=== PATIENT | female | born 1985 | race American Indian/Alaskan Native ===

== ENCOUNTER 2016-12-23 02:08 | Emergency (ER) | payer MEDICAID, OTHER ==
[2016-12-23 03:23] VITALS: BP 100/62
--- NOTE | 2016-12-23 05:11 | Emergency Department Report ---
ED ENT HPI - General Chief complaint: Dental/Oral Stated complaint: TOOTHACHE,EAR PAIN Time Seen by Provider: 12/23/16 04:56 Source: patient Mode of arrival: Ambulatory Limitations: No Limitations - History of Present Illness MD complaint: tooth pain -: During the night Severity: severe Severity scale (0 -10): 9 Quality: aching Consistency: constant Improves with: none Worsens with: none - Related Data Previous Rx's Medication Instructions Recorded Last Taken Type HYDROcodone/APAP 5-325 [[place] 1 each PO Q6HR PRN #10 tablet 12/23/16 Unknown Rx 5/325] Penicillin Vk [Veetids TAB] 250 mg PO QID #28 tablet 12/23/16 Unknown Rx Allergies Allergy/AdvReac Type Severity Reaction Status Date / Time No Known Allergies Allergy Unverified 12/23/16 03:23 ED Dental HPI - General Chief complaint: Dental/Oral Stated complaint: TOOTHACHE,EAR PAIN Time Seen by Provider: 12/23/16 04:56 Source: patient Mode of arrival: Ambulatory Limitations: No Limitations - Related Data Previous Rx's Medication Instructions Recorded Last Taken Type HYDROcodone/APAP 5-325 [[place] 1 each PO Q6HR PRN #10 tablet 12/23/16 Unknown Rx 5/325] Penicillin Vk [Veetids TAB] 250 mg PO QID #28 tablet 12/23/16 Unknown Rx Allergies Allergy/AdvReac Type Severity Reaction Status Date / Time No Known Allergies Allergy Unverified 12/23/16 03:23 ED Review of Systems ROS: Stated complaint: TOOTHACHE,EAR PAIN Other details as noted in HPI Constitutional: denies: chills, fever Eyes: denies: eye pain, eye discharge, vision change ENT: dental pain. denies: ear pain, throat pain Respiratory: denies: cough, shortness of breath, wheezing Cardiovascular: denies: chest pain, palpitations Endocrine: no symptoms reported Gastrointestinal: denies: abdominal pain, nausea, diarrhea Genitourinary: denies: urgency, dysuria, discharge Musculoskeletal: denies: back pain, joint swelling, arthralgia Skin: denies: rash, lesions Neurological: denies: headache, weakness, paresthesias Psychiatric: denies: anxiety, depression Hematological/Lymphatic: denies: easy bleeding, easy bruising ED Past Medical Hx - Past Medical History Previous Medical History?: Yes Hx Asthma: Yes - Surgical History Past Surgical History?: No - Social History Smoking Status: Current Some Day Smoker Substance Use Type: Alcohol - Medications Home Medications: Home Medications Medication Instructions Recorded Confirmed Last Taken Type HYDROcodone/APAP 5-325 [[place] 1 each PO Q6HR PRN #10 tablet 12/23/16 Unknown Rx 5/325] Penicillin Vk [Veetids TAB] 250 mg PO QID #28 tablet 12/23/16 Unknown Rx ED Physical Exam - General Limitations: No Limitations General appearance: alert, in no apparent distress - Head Head exam: Present: atraumatic, normocephalic - Eye Eye exam: Present: normal appearance - ENT ENT exam: Present: mucous membranes moist - Expanded ENT Exam Expanded Ear exam: Present: normal external inspection Teeth exam: Present: dental caries, other (wisdom tooth erruption) - Neck Neck exam: Present: normal inspection - Respiratory Respiratory exam: Present: normal lung sounds bilaterally. Absent: respiratory distress - Cardiovascular Cardiovascular Exam: Present: regular rate, normal rhythm. Absent: systolic murmur, diastolic murmur, rubs, gallop - GI/Abdominal GI/Abdominal exam: Present: soft, normal bowel sounds - Extremities Exam Extremities exam: Present: normal inspection - Back Exam Back exam: Present: normal inspection - Neurological Exam Neurological exam: Present: alert, oriented X3 - Psychiatric Psychiatric exam: Present: normal affect, normal mood - Skin Skin exam: Present: warm, dry, intact, normal color. Absent: rash ED Course Vital Signs 12/23/16 03:20 Temperature 98.9 F Pulse Rate 69 Respiratory 20 Rate Blood Pressure 100/62 O2 Sat by Pulse 97 Oximetry ED Medical Decision Making - Medical Decision Making toothache #32 and wisdom tooth eruption Critical care attestation.: If time is entered above; I have spent that time in minutes in the direct care of this critically ill patient, excluding procedure time. ED Disposition Clinical Impression: Toothache Disposition: DISCHARGED TO HOME OR SELFCARE Is pt being admited?: No Does the pt Need Aspirin: No Condition: Stable Instructions: Toothache (ED), Dental Caries (ED) Prescriptions: HYDROcodone/APAP 5-325 [[place] 5/325] 1 each PO Q6HR PRN #10 tablet PRN Reason: Pain Penicillin Vk [Veetids TAB] 250 mg PO QID #28 tablet Forms: Work/School Release Form(ED) Time of Disposition: 05:13
[2016-12-23] MEDS ORDERED: NORCO 10/325 PO ONE (05:13)
== END 2016-12-23 05:16 | disposition home or self-care (01) ==
LOC: ED 02:08
DX: K08.89 Other specified disorders of teeth and supporting structures (principal); J45.909 Unspecified asthma, uncomplicated; F17.200 Nicotine dependence, unspecified, uncomplicated
CPT/HCPCS: 99282

== ENCOUNTER 2019-05-18 19:53 | Emergency (ER) | payer MEDICAID ==
[2019-05-18 19:59] VITALS: BP 118/86
[2019-05-18] MEDS ORDERED: DELTASONE PO ONE (19:59)
[2019-05-18] MEDS ORDERED: DUONEB *Not for PRN Use IH ONE (19:59)
--- NOTE | 2019-05-18 19:59 | Emergency Department Report ---
Blank Doc - Documentation Documentation: This is a 33-year-old female that presents with wheezing and SOB with cough. This initial assessment/diagnostic orders/clinical plan/treatment(s) is/are subject to change based on patient's health status, clinical progression and re- assessment by fellow clinical providers in the ED. Further treatment and workup at subsequent clinical providers discretion. Patient/guardians urged not to elope from the ED as their condition may be serious if not clinically assessed and managed. Initial orders include: 1- Patient sent to [facility] for further evaluation and treatment 2- breathing treatment/steroids 3- CXR
--- NOTE | 2019-05-18 21:14 | XRay Report ---
PROCEDURE: XR CHEST ROUTINE 2V TECHNIQUE: PA and lateral chest radiographs were obtained. HISTORY: wheezing/SOB/cough COMPARISONS: None. FINDINGS: Heart: Normal. Mediastinum/Vessels: Normal. Lungs/Pleural space: Normal. Bony thorax: No acute osseous abnormality. IMPRESSION: No acute cardiopulmonary process seen.. This document is electronically signed by Nadeen Colmenares MD., May 18 2019 09:12:06 PM ET
--- NOTE | 2019-05-19 00:13 | Emergency Department Report ---
ED Shortness of Breath HPI - General Chief Complaint: Dyspnea/Respdistress Stated Complaint: SOB Time Seen by Provider: 05/18/19 19:57 Source: patient Mode of arrival: Ambulatory Limitations: No Limitations - History of Present Illness Initial Comments: This is a 33-year-old -[place] female who presents to the emergency room with shortness of breath and a cough for several weeks. Past medical history of asthma. Patient states she hasn't had issues with asthma in several years. She hadn't tried anything [id number] for symptomatic relief. She denies fever, chills, or pain. MD Complaint: shortness of breath, cough Onset/Timin -: days(s) Severity: mild Pain Scale: 0 Improves With: nothing Worsens With: exertion, coughing Known History Of: asthma Context: recent URI Associated Symptoms: cough Treatments Prior to Arrival: none - Related Data Home Oxygen Therapy: No Previous Rx's Medication Instructions Recorded Last Taken Type HYDROcodone/APAP 5-325 [[employer] 1 each PO Q6HR PRN #10 tablet 12/23/16 Unknown Rx 5/325] Penicillin Vk [Veetids TAB] 250 mg PO QID #28 tablet 12/23/16 Unknown Rx ALBUTEROL Inhaler (OR & NICU) 2 puff IH QID PRN #1 inhalation 05/19/19 Unknown Rx [ProAir HFA Inhaler] Benzonatate [Tessalon Perles] 100 mg PO Q8HR PRN #30 capsule 05/19/19 Unknown Rx Fluticasone [Flonase] 1 spray NS QDAY #1 bottle 05/19/19 Unknown Rx Prednisone [predniSONE 10 mg 10 mg PO .TAPER #1 tab.ds.pk 05/19/19 Unknown Rx (6-Day Pack, 21 Tabs)] Allergies Allergy/AdvReac Type Severity Reaction Status Date / Time No Known Allergies Allergy Verified 05/18/19 19:56 ED Review of Systems ROS: Stated complaint: SOB Other details as noted in HPI Constitutional: denies: chills, fever ENT: denies: ear pain, throat pain Respiratory: cough, shortness of breath, SOB with exertion. denies: wheezing Cardiovascular: denies: chest pain, palpitations Gastrointestinal: denies: abdominal pain, nausea, diarrhea Skin: denies: rash, lesions Neurological: denies: headache, weakness, paresthesias Psychiatric: denies: anxiety, depression ED Past Medical Hx - Past Medical History Previous Medical History?: Yes Hx Asthma: Yes - Surgical History Past Surgical History?: No - Social History Smoking Status: Current Every Day Smoker - Medications Home Medications: Home Medications Medication Instructions Recorded Confirmed Last Taken Type HYDROcodone/APAP 5-325 [[employer] 1 each PO Q6HR PRN #10 tablet 12/23/16 Unknown Rx 5/325] Penicillin Vk [Veetids TAB] 250 mg PO QID #28 tablet 12/23/16 Unknown Rx ALBUTEROL Inhaler (OR & NICU) 2 puff IH QID PRN #1 inhalation 05/19/19 Unknown Rx [ProAir HFA Inhaler] Benzonatate [Tessalon Perles] 100 mg PO Q8HR PRN #30 capsule 05/19/19 Unknown Rx Fluticasone [Flonase] 1 spray NS QDAY #1 bottle 05/19/19 Unknown Rx Prednisone [predniSONE 10 mg 10 mg PO .TAPER #1 tab.ds.pk 05/19/19 Unknown Rx (6-Day Pack, 21 Tabs)] ED Physical Exam - General Limitations: No Limitations General appearance: alert, in no apparent distress, obese - ENT ENT exam: Present: normal orophraynx, mucous membranes moist, other (turbinate is mildly congested with clear discharge) - Respiratory Respiratory exam: Present: wheezes. Absent: chest wall tenderness - Cardiovascular Cardiovascular Exam: Present: regular rate, normal rhythm. Absent: systolic murmur, diastolic murmur, rubs, gallop - GI/Abdominal GI/Abdominal exam: Present: soft, normal bowel sounds. Absent: distended, tenderness, guarding, rebound, rigid - Neurological Exam Neurological exam: Present: alert, oriented X3 - Psychiatric Psychiatric exam: Present: normal affect, normal mood - Skin Skin exam: Present: warm, dry, intact, normal color. Absent: rash ED Course Vital Signs 05/18/19 05/18/19 19:56 19:58 Temperature 98.2 F 98.2 F Pulse Rate 87 98 H Respiratory 18 22 Rate Blood Pressure 118/86 118/86 O2 Sat by Pulse 98 97 Oximetry ED Medical Decision Making - Radiology Data Radiology results: report reviewed PROCEDURE: XR CHEST ROUTINE 2V TECHNIQUE: PA and lateral chest radiographs were obtained. HISTORY: wheezing/SOB/cough COMPARISONS: None. FINDINGS: Heart: Normal. Mediastinum/Vessels: Normal. Lungs/Pleural space: Normal. Bony thorax: No acute osseous abnormality. IMPRESSION: No acute cardiopulmonary process seen.. - Medical Decision Making Patient examined by me and in slight distress. History of Asthma. Patient states she hasn't had issues with asthma in several years. Vitals stable. Given duoneb treatment once and prednisone 60 mg po once in ER. Wheezes resolved. A sthma exacerbation, Start albuterol and prednisone taper. Discharged home stable. Encouraged to do supportive care for URI. Follow-up with the primary care provider. Critical care attestation.: If time is entered above; I have spent that time in minutes in the direct care of this critically ill patient, excluding procedure time. ED Disposition Clinical Impression: Dyspnea Qualifiers: Dyspnea type: shortness of breath Qualified Code(s): R06.02 - Shortness of breath; R06.00 - Dyspnea, unspecified; R06.01 - Orthopnea Asthma exacerbation Qualifiers: Asthma severity: mild Asthma persistence: intermittent Qualified Code(s): J45.21 - Mild intermittent asthma with (acute) exacerbation Upper respiratory infection Qualifiers: URI type: acute nasopharyngitis (common cold) Qualified Code(s): J00 - Acute nasopharyngitis [common cold] Disposition: - TO HOME OR SELFCARE Is pt being admited?: No Does the pt Need Aspirin: No Condition: Stable Instructions: Asthma (ED) Additional Instructions: It is important to use inhaler or have active albuterol inhaler and avoiding asthma triggers. Complete full course of prednisone steroids as prescribed. Follow up with Primary Care Provider in 24-72 hours. Prescriptions: Fluticasone [Flonase] 1 spray NS QDAY #1 bottle Prednisone [predniSONE 10 mg (6-Day Pack, 21 Tabs)] 10 mg PO .TAPER #1 tab.ds.pk ALBUTEROL Inhaler (OR & NICU) [ProAir HFA Inhaler] 2 puff IH QID PRN #1 inhalation PRN Reason: Shortness Of Breath Benzonatate [Tessalon Perles] 100 mg PO Q8HR PRN #30 capsule PRN Reason: Cough Referrals: HARRY MARION MD [Primary Care Provider] - 3-5 Days [facility] [Outside] - 3-5 Days [facility] [Outside] - 3-5 Days Forms: Work/School Release Form(ED) Time of Disposition: 00:25
== END 2019-05-19 00:55 | disposition home or self-care (01) ==
LOC: ED 19:53
DX: J06.9 Acute upper respiratory infection, unspecified (principal); J45.901 Unspecified asthma with (acute) exacerbation; F17.200 Nicotine dependence, unspecified, uncomplicated; Z79.899 Other long term (current) drug therapy
CPT/HCPCS: 71046; 94640; 99283; J7512